=== PATIENT | female | born 1955 | race Caucasian/White ===

== ENCOUNTER → 2019-08-31 | Outpatient (CLI) | payer OTHER ==
--- NOTE | 2019-08-31 14:34 | KCIC ---
Examination: MRI of the right wrist without contrast HISTORY: History of right wrist pain COMPARISON: None available TECHNIQUE: Multiplanar, multisequence MR imaging of the right testis were performed without contrast FINDINGS: Moderate joint space loss identified in the carpal joints. There is diffuse increased T2 signal identified in the carpal bones. There is a 7 mm cystic structure identified in the medial aspect of the lunate bone probably degenerative cyst or erosion. Examination is very limited due to significant motion artifact. There is diffuse intermediate T1 signal identified in the synovium of the carpal bones with corresponding increased T2 signal likely diffuse synovitis. Multiloculated small cystic structures identified extending dorsal and flexor to the radiocarpal joints measuring 6 mm probably small ganglion cysts. Moderate degenerative changes carpal metacarpal joint. The visualized flexor tendons, extensor tendons grossly appears unremarkable. IMPRESSION: 1. Diffuse synovitis in the carpal joints with diffuse increased T2 signal/edema in the carpal bones probably inflammatory joint disease possibly rheumatoid arthritis. Electronically signed by: Lucas Sanchez MD (08/31/2019 2:31 PM) [id number]
== END ==
LOC: KCIC MRI 12:55
PROVIDERS: ATTEND Internal Medicine
DX: S63.511A Sprain of carpal joint of right wrist, initial encounter (principal); X58.XXXA Exposure to other specified factors, initial encounter; Y93.89 Activity, other specified; Y92.89 Other specified places as the place of occurrence of the external cause; Y99.8 Other external cause status
CPT/HCPCS: 73221

== ENCOUNTER → 2019-11-16 | Outpatient (CLI) | payer MEDICARE, OTHER ==
--- NOTE | 2019-11-16 14:56 | KCIC ---
CT MAXILLOFACIAL WO CONTRAST Indication: Reason: FACIAL CONTUSION / Spl. Instructions: / History: Pt fell 5 wks. ago, contusion below Rt eye, numbness Rt side of face. Comparison study: None. Technique: Noncontrast CT of the maxillofacial region was performed in the axial plane. Sagittal and coronal reconstructions were performed. One or more of the following dose reduction techniques were utilized: Automated exposure control (AEC), Adjustment of mA and/or kV according to patient size, Use of iterative reconstruction technique such as ASiR, CT scan done according to ALARA and image gently/image wisely Findings: No acute osseous abnormalities are detected. The orbital polo are intact. The zygomatic arches are intact. The nasal bones are intact. The pterygoids are intact. The mandible is intact. The temporomandibular joints demonstrate normal alignment. Postsurgical changes of functional endoscopic sinus surgery. Moderate paranasal sinus mucosal thickening. Nasal septum is deviated to the right. The visualized mastoid air cells are clear. The orbits and globes are normal. The visualized aerodigestive tract is unremarkable. The visualized brain parenchyma is normal in attenuation. IMPRESSION: No acute facial bone fracture. Electronically signed by: Christopher Blackburn MD (11/16/2019 2:53 PM) [id number]
== END | disposition home or self-care (01) ==
LOC: KCIC CT 12:40
PROVIDERS: ATTEND Internal Medicine
DX: S00.83XA Contusion of other part of head, initial encounter (principal); X58.XXXA Exposure to other specified factors, initial encounter; Y93.89 Activity, other specified; Y92.89 Other specified places as the place of occurrence of the external cause; Y99.8 Other external cause status
CPT/HCPCS: 70486